=== PATIENT | male | born 1975 | race Caucasian/White ===

== ENCOUNTER → 2022-03-24 | Outpatient (CLI) | payer MEDICARE ==
[~2022-03-24] MED LIST: AMBIEN10 MG PO; BUTALB-ACETAMI1 EACH PO; DIOVAN80 MG PO; FLONASE 0.05% N16 GM; HYDROCODON-ACE1 EAC6 PO; LIPITOR40 MG PO; NORVASC10 MG PO; OMEPRAZOLE40 MG PO; PHENERGAN 25 MG25 M1 PO; PROAIR HFA8.5 GM INH; ST. JOSEPH ASPI81 MG PO; TESTOSTERO200 MG/1 M IM; WEEKLY-D1250 MCG PO
[2022-03-24 10:35] LABS: HEMOGLOBIN 15.7 gm/dl (14.0-17.5); RED BLOOD COUNT 5.11 M/UL (4.20-5.50); WHITE BLOOD COUNT 5.7 K/UL (4.5-11.0)
[2022-03-24 11:01] LABS: BUN/CREATININE RATIO 11 (0-10)
== END ==
LOC: OPSV2 09:45
PROVIDERS: Orthopaedic Surgery
DX: Z01.812 Encounter for preprocedural laboratory examination (principal); G56.01 Carpal tunnel syndrome, right upper limb
CPT/HCPCS: 80048; 85027; 93005

== ENCOUNTER → 2022-03-31 | Day surgery (SDC) | payer MEDICARE ==
[~2022-03-31] VITALS: Ht 180.3 cm; Wt 95.3 kg
[~2022-03-31] MED LIST changes: +NEURONTIN300 MG PO
== END | disposition home or self-care (01) ==
LOC: OR 08:07
PROVIDERS: Orthopaedic Surgery
PROC: 01N50ZZ Release Median Nerve, Open Approach (ICD-10-PCS; principal; 2022-03-31 14:30)
DX: G56.03 Carpal tunnel syndrome, bilateral upper limbs (principal); I10 Essential (primary) hypertension; E78.5 Hyperlipidemia, unspecified; E16.2 Hypoglycemia, unspecified; J45.909 Unspecified asthma, uncomplicated; I48.91 Unspecified atrial fibrillation; K44.9 Diaphragmatic hernia without obstruction or gangrene; G43.909 Migraine, unspecified, not intractable, without status migrainosus; G62.9 Polyneuropathy, unspecified; E66.01 Morbid (severe) obesity due to excess calories; Z79.51 Long term (current) use of inhaled steroids; Z79.82 Long term (current) use of aspirin; Z79.899 Other long term (current) drug therapy; Z88.0 Allergy status to penicillin; Z88.2 Allergy status to sulfonamides
CPT/HCPCS: J1100; J2250; J2270; J2405; J2704; J3010; J7120